=== PATIENT | male | born 1985 | race Caucasian/White ===

== ENCOUNTER 2017-07-01 15:36 | Emergency (ER) | payer SELFPAY ==
[~2017-07-01] VITALS: Ht 180.3 cm; Wt 86.2 kg
[2017-07-01 16:50] VITALS: BP 130/65
== END 2017-07-01 16:50 | disposition other institution (70) ==
LOC: ED 15:36
DX: S01.81XA Laceration without foreign body of other part of head, initial encounter (principal); X58.XXXA Exposure to other specified factors, initial encounter; Y93.89 Activity, other specified; Y92.89 Other specified places as the place of occurrence of the external cause; Y99.8 Other external cause status; S20.212A Contusion of left front wall of thorax, initial encounter; S20.211A Contusion of right front wall of thorax, initial encounter
CPT/HCPCS: 90715

== ENCOUNTER 2017-07-01 15:36 | Emergency (ER) | payer OTHER | END 2017-07-01 16:50 | disposition other institution (70) | LOC: ED 15:36 | DX: Z02.89 Encounter for other administrative examinations (principal) ==